=== PATIENT | male | born 1930 | race Hispanic/Latino ===

== ENCOUNTER 2021-01-18 06:44 | Day surgery (SDC) | payer OTHER ==
[2021-01-12 13:16] LABS: BASOPHILS % (AUTO) 0.6 % (0.0-5.0); EOSINOPHILS % (AUTO) 1.6 % (0.0-8.0); HEMATOCRIT 29.9 % (42-54); LYMPHOCYTES % (AUTO) 20.4 % (21.0-51.0); MEAN CORPUSCULAR HEMOGLOBIN 32.4 pg (27.0-33.0); MEAN CORPUSCULAR HGB CONC 32.4 g/dL (32.0-36.0); NEUTROPHILS % (AUTO) 67.9 % (40.0-77.0); PLATELET COUNT (AUTO) 201 K/uL (130-400); RED BLOOD CELL COUNT(AUTO) 2.99 MIL/uL (4.50-6.20); WHITE BLOOD COUNT (AUTO) 11.3 K/uL (4.8-10.8)
[2021-01-12 13:29] LABS: ALBUMIN 3.4 g/dL (3.5-5.0); BILIRUBIN,TOTAL 0.5 mg/dL (0.2-1.0); CREATININE 1.8 mg/dL (0.5-1.5); TOTAL PROTEIN, SERUM 7.5 g/dL (6.0-8.3)
[2021-01-12 13:31] LABS: POTASSIUM 6.1 mmol/L (3.5-5.1)
[2021-01-13 10:48] VITALS: BP 156/55
[~2021-01-18] VITALS: Ht 162.6 cm; Wt 70.2 kg
[2021-01-18] VITALS (27 sets, daily range): BP systolic 124–149; BP diastolic 45–62
[~2021-01-18 06:44] MED LIST: AMLO-257 PO; ASPI-1197 PO; ATOR20TA65 PO; BETA1TAB20 PO; CHOL100046 PO; CYAN250010 PO; NOVALIN N SQ; VALS1TAB81 PO; VITA100051 PO
[2021-01-18] MEDS ORDERED: LIDOCAINE 1%-EPI 1:100,000 20 ML VIAL IJ SCH (08:00)
[2021-01-18] MEDS ORDERED: 0.9%NACL 1000ML 1,000 ML IV ONE (08:05)
[2021-01-18 09:08] LABS: BASOPHILS % (AUTO) 0.6 % (0.0-5.0); EOSINOPHILS % (AUTO) 2.4 % (0.0-8.0); HEMATOCRIT 26.7 % (42-54); LYMPHOCYTES % (AUTO) 26.8 % (21.0-51.0); MEAN CORPUSCULAR HEMOGLOBIN 32.1 pg (27.0-33.0); MEAN CORPUSCULAR VOLUME 97.4 fL (79-99); MONOCYTES % (AUTO) 9.5 % (3.0-13.0); NEUTROPHILS % (AUTO) 60.2 % (40.0-77.0); PLATELET COUNT (AUTO) 189 K/uL (130-400); RED BLOOD CELL COUNT(AUTO) 2.74 MIL/uL (4.50-6.20); WHITE BLOOD COUNT (AUTO) 8.4 K/uL (4.8-10.8)
[2021-01-18 09:18] LABS: CREATININE 1.8 mg/dL (0.5-1.5); POTASSIUM 5.7 mmol/L (3.5-5.1)
[2021-01-18] MEDS ORDERED: SODIUM BICARB 8.4% 50ML SYRINGE ONE (09:19)
[2021-01-18] MEDS ORDERED: KETAMINE 50MG/ML SYRINGE 50 MG/ML DISP.SYRIN IV ONE (09:19)
[2021-01-18] MEDS ORDERED: SUCCINYLCHOLINE 200MG/10ML SYR ONE (09:20)
[2021-01-18] MEDS ORDERED: PROPOFOL 10 MG/ML 20ML VIAL IV ONE (09:20)
[2021-01-18] MEDS ORDERED: MIDAZOLAM HCL 1 MG/ML 2ML VIAL ONE ×2 (09:20→09:27)
[2021-01-18] MEDS ORDERED: DEXAMETHASONE SOD PHOSPHATE 10MG/ML 1ML VIAL ONE ×2 (09:20→09:21)
[2021-01-18] MEDS ORDERED: LIDOCAINE PF 100MG/5ML (2%) SYRINGE 5ML ONE (09:20)
[2021-01-18] MEDS ORDERED: FENTANYL CITRATE PF 50 MCG/1 ML 2ML VIAL ONE (09:21)
[2021-01-18] MEDS ORDERED: ONDANSETRON 4MG INJ ONE (09:21)
[2021-01-18] MEDS ORDERED: EPHEDRINE SULFATE 50 MG/ML AMPULE ONE (09:44)
[2021-01-18] MEDS ORDERED: INSULIN HUMULIN R 100 UNIT/ML 3ML ONE (09:54)
[2021-01-18] MEDS ORDERED: DEXTROSE 50%-WATER 50 ML DISP.SYRIN IV ONE (09:55)
[2021-01-18] MEDS ORDERED: PHENYLEPHRINE HCL 10 MG/ML 1ML VIAL IV ONE (10:24)
[2021-01-18] MEDS ORDERED: FLUMAZENIL 0.1MG/1ML 5ML VIAL IV ONE (12:27)
== END 2021-01-18 16:00 | disposition home or self-care (01) ==
LOC: DAH 06:44
PROVIDERS: ATTEND Otolaryngology Plastic Surgery within the Head & Neck
DX: C07 Malignant neoplasm of parotid gland (principal); Z20.822 Contact with and (suspected) exposure to COVID-19; C77.0 Secondary and unspecified malignant neoplasm of lymph nodes of head, face and neck; I10 Essential (primary) hypertension; E11.9 Type 2 diabetes mellitus without complications; D64.9 Anemia, unspecified; Z90.89 Acquired absence of other organs; Z85.828 Personal history of other malignant neoplasm of skin; Z79.899 Other long term (current) drug therapy
CPT/HCPCS: 36415 ×3; 38720; 42420; 80048; 80053; 82948 ×3; 84132; 85025 ×2; 87635; A4215; A4221; A4222; A4223; A4556; A4663; A6260; C9803; J0330; J1100 ×2; J1815; J2001; J2250 ×2; J2370; J2405; J2704; J3010; J3490 ×5; J7030; J7070

== ENCOUNTER 2021-04-11 12:30 | Inpatient (IN) | payer OTHER ==
[2021-04-07 12:42] LABS: BASOPHILS % (AUTO) 0.6 % (0.0-5.0); EOSINOPHILS % (AUTO) 0.7 % (0.0-8.0); HEMATOCRIT 32.7 % (42-54); LYMPHOCYTES % (AUTO) 23.8 % (21.0-51.0); MEAN CORPUSCULAR HEMOGLOBIN 32.7 pg (27.0-33.0); MEAN CORPUSCULAR HGB CONC 32.1 g/dL (32.0-36.0); MEAN CORPUSCULAR VOLUME 101.9 fL (79-99); MONOCYTES % (AUTO) 7.1 % (3.0-13.0); NEUTROPHILS % (AUTO) 67.4 % (40.0-77.0); PLATELET COUNT (AUTO) 221 K/uL (130-400); RED BLOOD CELL COUNT(AUTO) 3.21 MIL/uL (4.50-6.20); RED CELL DISTRIBUTION WIDTH 12.2 % (11.0-15.5); WHITE BLOOD COUNT (AUTO) 8.3 K/uL (4.8-10.8)
[2021-04-07 12:53] LABS: INR 0.99 (0.85-1.15); PROTHROMBIN TIME 10.8 SEC (9.6-11.6)
[2021-04-07 12:54] LABS: PARTIAL THROMBOPLASTIN TIME 26.3 SEC (26.3-35.5)
[2021-04-07 12:56] LABS: CREATININE 1.6 mg/dL (0.5-1.5); POTASSIUM 5.9 mmol/L (3.5-5.1)
[~2021-04-11] VITALS: Ht 162.6 cm; Wt 66.7 kg
[2021-04-11 10:00] VITALS: BP 160/67
[~2021-04-11 12:30] MED LIST changes: -ATOR20TA65 PO; +ATOR40TA71 PO; +LOSA50TA64 PO; -NOVALIN N SQ; -VALS1TAB81 PO; +[UNRECOGNIZED DRUG - OTHER] SQ
[2021-04-12] MEDS ORDERED: CEFAZOLIN SODIUM 1 GM VIAL IVP ONE (08:00)
[2021-04-14] VITALS (15 sets, daily range): BP systolic 113–153; BP diastolic 42–78
[2021-04-14] MEDS ORDERED: CEFAZOLIN SODIUM 1 GM VIAL ONE ×3 (06:40→13:13)
[2021-04-14] MEDS ORDERED: 0.9%NACL 1000ML 1,000 ML IV ONE (06:41)
[2021-04-14 07:17] LABS: CREATININE 1.8 mg/dL (0.5-1.5); POTASSIUM 4.8 mmol/L (3.5-5.1)
[2021-04-14] MEDS ORDERED: PHENYLEPHRINE HCL 10 MG/ML 1ML VIAL IV ONE ×2 (07:19→07:26)
[2021-04-14] MEDS ORDERED: ROCURONIUM 10MG/1ML SYR 10 MG/ML ML ONE (07:20)
[2021-04-14] MEDS ORDERED: EPHEDRINE SULFATE 50 MG/ML AMPULE ONE ×2 (07:20→13:50)
[2021-04-14] MEDS ORDERED: DEXAMETHASONE SOD PHOSPHATE 10MG/ML 1ML VIAL ONE (07:20)
[2021-04-14] MEDS ORDERED: ONDANSETRON 4MG INJ ONE (07:20)
[2021-04-14] MEDS ORDERED: PROPOFOL 10 MG/ML 20ML VIAL IV ONE (07:20)
[2021-04-14] MEDS ORDERED: NEOSTIGMINE 5MG/5ML SYR IV ONE (07:20)
[2021-04-14] MEDS ORDERED: FENTANYL CITRATE PF 50 MCG/1 ML 5ML AMP IV ONE (07:21)
[2021-04-14] MEDS: LIDOCAINE 1%-EPI 1:100,000 20 ML VIAL IJ SCH ×2 (08:00→08:40)
[2021-04-14] MEDS ORDERED: GLYCOPYRROLATE 1 MG/5 ML SYRINGE ONE (09:14)
[2021-04-14] MEDS ORDERED: SUGAMMADEX SODIUM 200 MG/2 ML VIAL IV ONE (09:33)
[2021-04-14] MEDS ORDERED: FENTANYL CITRATE PF 50 MCG/1 ML 2ML VIAL ONE (11:01)
[2021-04-14] MEDS ORDERED: MINERAL OIL 30 ML UDCUP ONE (12:37)
[2021-04-14] MEDS ORDERED: NEOMY SULF/BACITRAC ZN/POLY OINT 30GM TUBE TP ONE (13:03)
[2021-04-14] MEDS ORDERED: FAMOTIDINE 20MG VIAL IV SCH (14:48)
[2021-04-14] MEDS ORDERED: DEXTROSE 50%-WATER 50 ML DISP.SYRIN IV PRN (15:00)
[2021-04-14] MEDS ORDERED: GLUCAGON 1MG KIT 1 MG ML IM PRN (15:00)
[2021-04-14] MEDS ORDERED: LIDOCAINE HCL-MPF 1% 2ML VIAL IJ PRN ×2 (15:00)
[2021-04-14] MEDS ORDERED: POTASSIUM CHLORIDE 10% ELIXIR 20 MEQ/15 ML UDCUP PO PRN (15:00)
[2021-04-14] MEDS ORDERED: MAGNESIUM 2GM PREMIX 50ML 50 ML IV PRN (15:00)
[2021-04-14] MEDS ORDERED: KCL 20 MEQ ERTAB PO PRN (15:00)
[2021-04-14] MEDS ORDERED: POTASSIUM CHLORIDE 10MEQ/100ML 100 ML IV PRN ×2 (15:00)
[2021-04-14] MEDS ORDERED: ACETAMINOPHEN 325 MG TAB PO PRN (15:30)
[2021-04-14] MEDS ORDERED: HYDRALAZINE 20MG/ML VIAL IV PRN (15:30)
[2021-04-14] MEDS ORDERED: ACETAMINOPHEN 325 MG SUPPOSITORY RC PRN (15:30)
[2021-04-14] MEDS ORDERED: ONDANSETRON 4MG INJ IVP PRN (15:30)
[2021-04-14] MEDS ORDERED: IPRATROPIUM/ALBUTEROL SULFATE 3 ML SOLUTION IH PRN (15:30)
[2021-04-14 15:47] LABS: HEMATOCRIT 27.9 % (42-54); MEAN CORPUSCULAR HEMOGLOBIN 33.3 pg (27.0-33.0); MEAN CORPUSCULAR HGB CONC 33.7 g/dL (32.0-36.0); MEAN CORPUSCULAR VOLUME 98.9 fL (79-99); RED BLOOD CELL COUNT(AUTO) 2.82 MIL/uL (4.50-6.20); RED CELL DISTRIBUTION WIDTH 11.9 % (11.0-15.5); WHITE BLOOD COUNT (AUTO) 12.4 K/uL (4.8-10.8)
[2021-04-14 16:08] LABS: ALBUMIN 2.8 g/dL (3.5-5.0); BILIRUBIN,TOTAL 0.4 mg/dL (0.2-1.0); CREATININE 1.8 mg/dL (0.5-1.5); POTASSIUM 4.8 mmol/L (3.5-5.1); TOTAL PROTEIN, SERUM 6.3 g/dL (6.0-8.3)
[2021-04-14] MEDS: FAMOTIDINE 20MG VIAL IV SCH (16:16)
[2021-04-14 16:44] LABS: ABG BASE EXCESS -6.9 mmol/L (-2.0-3.0); ABG HCO3 18.2 mmol/L (21.0-28.0); ABG OXYGEN SATURATION 98.7 % (95.0-99.0); ABG PCO2 35 mmHg (35-48)
[2021-04-14] MEDS ORDERED: SODIUM BICARB 50MEQ 50ML VIAL 50 ML ONE (16:47)
[2021-04-14] MEDS ORDERED: 0.9%NACL 1000ML 1,000 ML IV SCH (17:00)
[2021-04-14] MEDS: INSULIN HUMULIN R 100 UNIT/ML 3ML SQ SCH ×2 (18:00→23:18)
[2021-04-14] MEDS ORDERED: ARTIFICIAL TEARS 3.5 GM OINTMENT OD PRN (20:30)
[2021-04-14] MEDS: BACITRACIN 28.4 GM OINT TP SCH (23:19)
[2021-04-15] VITALS (7 sets, daily range): BP systolic 119–142; BP diastolic 48–59
[2021-04-15 02:58] LABS: ABG HCO3 24.2 mmol/L (21.0-28.0); ABG OXYGEN SATURATION 95.3 % (95.0-99.0); ABG PCO2 42 mmHg (35-48)
[2021-04-15 04:45] LABS: HEMATOCRIT 26.9 % (42-54); MEAN CORPUSCULAR HEMOGLOBIN 32.1 pg (27.0-33.0); MEAN CORPUSCULAR HGB CONC 32.7 g/dL (32.0-36.0); MEAN CORPUSCULAR VOLUME 98.2 fL (79-99); RED BLOOD CELL COUNT(AUTO) 2.74 MIL/uL (4.50-6.20); RED CELL DISTRIBUTION WIDTH 11.9 % (11.0-15.5); WHITE BLOOD COUNT (AUTO) 16.4 K/uL (4.8-10.8)
[2021-04-15 04:53] LABS: CREATININE 1.7 mg/dL (0.5-1.5); POTASSIUM 4.2 mmol/L (3.5-5.1)
[2021-04-15] MEDS: INSULIN HUMULIN R 100 UNIT/ML 3ML SQ SCH ×4 (05:40→20:29)
[2021-04-15] MEDS: ATORVASTATIN 40 MG TABLET PO SCH (10:51)
[2021-04-15] MEDS: AMLODIPINE 5 MG TAB PO SCH (10:51)
[2021-04-15] MEDS: LOSARTAN 25 MG TABLET PO SCH (10:51)
[2021-04-15] MEDS: FAMOTIDINE 20MG VIAL IV SCH (10:52)
[2021-04-15] MEDS: BACITRACIN 28.4 GM OINT TP SCH ×2 (10:56→19:34)
[2021-04-16 03:46] VITALS: BP 129/57
[2021-04-16] MEDS: INSULIN HUMULIN R 100 UNIT/ML 3ML SQ SCH ×4 (06:00→20:30)
[2021-04-16 08:10] VITALS: BP 128/54
[2021-04-16 08:37] LABS: HEMATOCRIT 26.6 % (42-54); MEAN CORPUSCULAR HEMOGLOBIN 32.7 pg (27.0-33.0); MEAN CORPUSCULAR HGB CONC 33.1 g/dL (32.0-36.0); MEAN CORPUSCULAR VOLUME 98.9 fL (79-99); RED BLOOD CELL COUNT(AUTO) 2.69 MIL/uL (4.50-6.20); RED CELL DISTRIBUTION WIDTH 12.1 % (11.0-15.5); WHITE BLOOD COUNT (AUTO) 16.2 K/uL (4.8-10.8)
[2021-04-16 08:45] LABS: CREATININE 1.4 mg/dL (0.5-1.5); POTASSIUM 4.3 mmol/L (3.5-5.1)
[2021-04-16] MEDS: FAMOTIDINE 20MG VIAL IV SCH (09:25)
[2021-04-16] MEDS: LOSARTAN 25 MG TABLET PO SCH (09:25)
[2021-04-16] MEDS: ATORVASTATIN 40 MG TABLET PO SCH (09:25)
[2021-04-16] MEDS: BACITRACIN 28.4 GM OINT TP SCH ×2 (09:25→19:32)
[2021-04-16] MEDS: AMLODIPINE 5 MG TAB PO SCH (09:25)
[2021-04-16] MEDS ORDERED: INSULIN HUMULIN R 100 UNIT/ML 3ML SQ SCH (11:30)
[2021-04-16 16:58] VITALS: BP 127/54
[2021-04-16] MEDS: ARTIFICIAL TEARS 3.5 GM OINTMENT OS SCH (19:32)
[2021-04-16 20:14] VITALS: BP 132/52
[2021-04-17] VITALS (7 sets, daily range): BP systolic 119–155; BP diastolic 49–79
[2021-04-17] MEDS: INSULIN HUMULIN R 100 UNIT/ML 3ML SQ SCH ×4 (06:06→21:49)
[2021-04-17] MEDS ORDERED: FAMOTIDINE 20MG TAB PO SCH (08:30)
[2021-04-17] MEDS: LOSARTAN 25 MG TABLET PO SCH (09:30)
[2021-04-17] MEDS: AMLODIPINE 5 MG TAB PO SCH (09:30)
[2021-04-17] MEDS: ATORVASTATIN 40 MG TABLET PO SCH (09:30)
[2021-04-17] MEDS: BACITRACIN 28.4 GM OINT TP SCH ×2 (09:31→20:45)
[2021-04-17] MEDS ORDERED: BISACODYL 10 MG SUPP.RECT RC PRN (19:00)
[2021-04-17] MEDS: PSYLLIUM SEED 1 EACH PACKET PO SCH (20:23)
[2021-04-17] MEDS: ARTIFICIAL TEARS 3.5 GM OINTMENT OS SCH ×2 (20:46→20:48)
[2021-04-18 04:18] VITALS: BP 153/59
[2021-04-18 07:30] VITALS: BP 133/53
[2021-04-18] MEDS: INSULIN HUMULIN R 100 UNIT/ML 3ML SQ SCH ×4 (07:30→20:36)
[2021-04-18] MEDS: LOSARTAN 25 MG TABLET PO SCH (09:02)
[2021-04-18] MEDS: PSYLLIUM SEED 1 EACH PACKET PO SCH (09:02)
[2021-04-18] MEDS: AMLODIPINE 5 MG TAB PO SCH (09:02)
[2021-04-18] MEDS: ATORVASTATIN 40 MG TABLET PO SCH (09:02)
[2021-04-18] MEDS: BACITRACIN 28.4 GM OINT TP SCH ×2 (09:46→20:37)
[2021-04-18 11:00] VITALS: BP 149/90
[2021-04-18 15:30] VITALS: BP 114/48
[2021-04-18 19:56] VITALS: BP 149/59
[2021-04-18] MEDS: ARTIFICIAL TEARS 3.5 GM OINTMENT OS SCH (20:37)
[2021-04-18 23:26] VITALS: BP 147/60
[2021-04-19 03:46] VITALS: BP 145/61
[2021-04-19] MEDS: INSULIN HUMULIN R 100 UNIT/ML 3ML SQ SCH ×4 (06:16→21:52)
[2021-04-19 08:00] VITALS: BP 153/58
[2021-04-19] MEDS: BACITRACIN 28.4 GM OINT TP SCH ×2 (09:00→21:53)
[2021-04-19] MEDS: AMLODIPINE 5 MG TAB PO SCH (09:03)
[2021-04-19] MEDS: PSYLLIUM SEED 1 EACH PACKET PO SCH (09:03)
[2021-04-19] MEDS: ATORVASTATIN 40 MG TABLET PO SCH (09:03)
[2021-04-19] MEDS: LOSARTAN 25 MG TABLET PO SCH (09:03)
[2021-04-19 12:00] VITALS: BP 127/49
[2021-04-19 16:00] VITALS: BP 108/40
[2021-04-19 19:51] VITALS: BP 130/49
[2021-04-19] MEDS: ARTIFICIAL TEARS 3.5 GM OINTMENT OS SCH (21:53)
[2021-04-19 23:17] VITALS: BP 138/56
[2021-04-20 04:21] VITALS: BP 152/51
[2021-04-20] MEDS: INSULIN HUMULIN R 100 UNIT/ML 3ML SQ SCH ×4 (06:40→21:44)
[2021-04-20 07:30] VITALS: BP 120/51
[2021-04-20] MEDS: BACITRACIN 28.4 GM OINT TP SCH ×2 (10:15→21:27)
[2021-04-20] MEDS: PSYLLIUM SEED 1 EACH PACKET PO SCH (10:15)
[2021-04-20] MEDS: ATORVASTATIN 40 MG TABLET PO SCH (10:16)
[2021-04-20] MEDS: LOSARTAN 25 MG TABLET PO SCH (10:16)
[2021-04-20] MEDS: AMLODIPINE 5 MG TAB PO SCH (10:21)
[2021-04-20 11:30] VITALS: BP 126/47
[2021-04-20 15:30] VITALS: BP 124/38
[2021-04-20 20:00] VITALS: BP 142/50
[2021-04-20] MEDS: ARTIFICIAL TEARS 3.5 GM OINTMENT OS SCH (21:27)
[2021-04-21] VITALS (7 sets, daily range): BP systolic 104–156; BP diastolic 45–74
[2021-04-21] MEDS: INSULIN HUMULIN R 100 UNIT/ML 3ML SQ SCH ×4 (05:30→20:43)
[2021-04-21] MEDS: PSYLLIUM SEED 1 EACH PACKET PO SCH (08:15)
[2021-04-21] MEDS: LOSARTAN 25 MG TABLET PO SCH (08:15)
[2021-04-21] MEDS: ATORVASTATIN 40 MG TABLET PO SCH (08:15)
[2021-04-21] MEDS: AMLODIPINE 5 MG TAB PO SCH (08:15)
[2021-04-21] MEDS: BACITRACIN 28.4 GM OINT TP SCH ×2 (09:37→20:30)
[2021-04-21] MEDS: ARTIFICIAL TEARS 3.5 GM OINTMENT OS SCH (20:30)
[2021-04-22 03:08] VITALS: BP 129/49
[2021-04-22 04:38] LABS: HEMATOCRIT 24.4 % (42-54); MEAN CORPUSCULAR HGB CONC 33.2 g/dL (32.0-36.0); MEAN CORPUSCULAR VOLUME 96.4 fL (79-99); RED BLOOD CELL COUNT(AUTO) 2.53 MIL/uL (4.50-6.20); RED CELL DISTRIBUTION WIDTH 11.8 % (11.0-15.5); WHITE BLOOD COUNT (AUTO) 10.8 K/uL (4.8-10.8)
[2021-04-22 05:02] LABS: CREATININE 1.3 mg/dL (0.5-1.5); POTASSIUM 4.2 mmol/L (3.5-5.1)
[2021-04-22] MEDS: INSULIN HUMULIN R 100 UNIT/ML 3ML SQ SCH ×4 (06:21→21:00)
[2021-04-22 07:20] VITALS: BP 110/46
[2021-04-22] MEDS: LOSARTAN 25 MG TABLET PO SCH (08:45)
[2021-04-22] MEDS: AMLODIPINE 5 MG TAB PO SCH (08:46)
[2021-04-22] MEDS: ATORVASTATIN 40 MG TABLET PO SCH (08:46)
[2021-04-22] MEDS: PSYLLIUM SEED 1 EACH PACKET PO SCH (08:46)
[2021-04-22] MEDS: BACITRACIN 28.4 GM OINT TP SCH ×2 (08:49→21:46)
[2021-04-22 11:20] VITALS: BP 119/48
[2021-04-22 15:20] VITALS: BP 120/43
[2021-04-22] MEDS: ARTIFICIAL TEARS 3.5 GM OINTMENT OS SCH (21:45)
== END 2021-04-22 20:05 | DRG 577 ==
LOC: EDSTATUS 04-12 12:30 → OBSVTOIN 04-14 06:04 → DAHIP 04-14 06:04 → 2DH 04-14 14:19 → 3DH 04-15 00:18
PROVIDERS: ADMIT Internal Medicine Critical Care Medicine; ATTEND Internal Medicine Critical Care Medicine
PROC: 07B20ZZ Excision of Left Neck Lymphatic, Open Approach (ICD-10-PCS; principal; 2021-04-14 08:00)
PROC: 0HX4XZZ Transfer Neck Skin, External Approach (ICD-10-PCS; 2021-04-14 08:00)
PROC: 0HB3XZZ Excision of Left Ear Skin, External Approach (ICD-10-PCS; 2021-04-14 08:00)
PROC: 0HB4XZZ Excision of Neck Skin, External Approach (ICD-10-PCS; 2021-04-14 08:00)
PROC: 0HBJXZZ Excision of Left Upper Leg Skin, External Approach (ICD-10-PCS; 2021-04-14 08:00)
DX: C44.300 Unspecified malignant neoplasm of skin of unspecified part of face (principal); N17.9 Acute kidney failure, unspecified; R64 Cachexia; C77.0 Secondary and unspecified malignant neoplasm of lymph nodes of head, face and neck; C44.90 Unspecified malignant neoplasm of skin, unspecified; E11.22 Type 2 diabetes mellitus with diabetic chronic kidney disease; I12.9 Hypertensive chronic kidney disease with stage 1 through stage 4 chronic kidney disease, or unspecified chronic kidney disease; N18.9 Chronic kidney disease, unspecified; E78.5 Hyperlipidemia, unspecified; Z20.822 Contact with and (suspected) exposure to COVID-19; E78.00 Pure hypercholesterolemia, unspecified; F41.9 Anxiety disorder, unspecified; R29.810 Facial weakness; Z68.25 Body mass index [BMI] 25.0-25.9, adult; Z79.82 Long term (current) use of aspirin; Z85.828 Personal history of other malignant neoplasm of skin; Z87.891 Personal history of nicotine dependence
CPT/HCPCS: 36415; 36600; 71045; 80048; 80053; 82435; 82803; 82947; 82948; 83605; 84132; 84295; 85018; 85025; 85027; 85610; 85730; 87635; 88305; 88307; 88341; 88342; 92526; 92610; 93005; 94002; 94003; 97039; A4344; C9803; G0378; J0690; J1100; J1815; J2370; J2405; J2704; J2710; J3010; J3490; J7030